=== PATIENT | male | born 1965 | race Caucasian/White ===

== ENCOUNTER 2018-03-31 12:33 | Emergency (ER) | payer MEDICAID ==
[~2018-03-31] VITALS: Ht 180.3 cm; Wt 74.4 kg
--- NOTE | 2018-03-31 12:45 | NUR ---
BACK PAIN S/P LIFTING HEAVY ITEMS YESTERDAY, HX CHRONIC BACK PAIN/SCIATICA. PT AAOX3, VSS. DENIES CP, SOB, DIZZINESS, N/V/D, WEAKNESS @ THIS TIME. EMANI CHARLES BY MD/PA & WILL CONT TO MONITOR.
[2018-03-31] MEDS ORDERED: KETOROLAC TROMETHAMINE INJ 30 MG/ML VIAL ONE (13:16)
[2018-03-31] MEDS ORDERED: KETOROLAC TROMETHAMINE INJ 30 MG/ML VIAL IM ONE (13:30)
[2018-03-31 13:57] VITALS: BP 128/78
== END 2018-03-31 14:04 | disposition home or self-care (01) ==
LOC: ER 12:35
DX: M54.41 Lumbago with sciatica, right side (principal); I10 Essential (primary) hypertension; J45.909 Unspecified asthma, uncomplicated; K21.9 Gastro-esophageal reflux disease without esophagitis; F32.9 Major depressive disorder, single episode, unspecified; Z96.643 Presence of artificial hip joint, bilateral; Z90.89 Acquired absence of other organs; F17.200 Nicotine dependence, unspecified, uncomplicated; Z60.2 Problems related to living alone
CPT/HCPCS: 96372; 99283; A4606; J1885; Z7610